=== PATIENT | male | born 1995 | race Two or more races ===

== ENCOUNTER 2016-08-03 20:22 | Emergency (ER) | payer OTHER ==
[~2016-08-03] VITALS: Ht 175.3 cm; Wt 81.6 kg
[2016-08-03] MEDS ORDERED: TdaP Vaccine 0.5ml Syr IM ONE (20:30)
[2016-08-03 21:07] VITALS: BP 140/80
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
== END 2016-08-03 21:45 | disposition left against medical advice (07) ==
LOC: EDBD 20:22 → EMR 21:44
DX: S00.83XA Contusion of other part of head, initial encounter (principal); Y04.0XXA Assault by unarmed brawl or fight, initial encounter; Y92.009 Unspecified place in unspecified non-institutional (private) residence as the place of occurrence of the external cause; Y99.8 Other external cause status
CPT/HCPCS: 99283